=== PATIENT | male | born 1930 | race Caucasian/White ===

== ENCOUNTER 2017-03-18 07:36 | Inpatient (IN) | payer MEDICARE, BC ==
[~2017-03-18] VITALS: Ht 165.1 cm; Wt 96.6 kg
--- NOTE | 2017-03-18 08:03 | NUR ---
PT IS IN ROOM #1B. DR JUAREZ EVALUATED THE PT.
[2017-03-18] MEDS ORDERED: NITROGLYCERIN 0.4 MG/TAB BOTTLE SL ONE ×2 (08:15→08:29)
[2017-03-18] MEDS ORDERED: ASPIRIN 325 MG TABLET PO ONE (08:15)
[2017-03-18] MEDS ORDERED: NITROGLYCERIN OINT 1 GM PACKET TP ONE ×2 (08:15→08:30)
[2017-03-18 08:21] LABS: CARBON DIOXIDE 27 mmol/L (21-32); CHLORIDE 104 mmol/L (98-107); CREATININE 1.3 mg/dL (0.6-1.3); POTASSIUM 3.8 mmol/L (3.5-5.1); UREA NITROGEN, BLOOD 26 mg/dL (7-18)
[2017-03-18 08:27] LABS: BASOPHILS % (AUTO) 0.1 % (0.0-2.0); EOSINOPHILS # (AUTO) 0.2 K/uL (0.0-0.7); EOSINOPHILS % (AUTO) 1.6 % (0.0-7.0); HEMATOCRIT 37.2 % (40-50); HEMOGLOBIN 12.1 G/DL (14.0-18.0); LYMPHOCYTES # (AUTO) 1.2 K/UL (0.8-4.8); LYMPHOCYTES % (AUTO) 12.3 % (20.5-51.5); MEAN CORPUSCULAR HGB CONC 33 g/dL (32.0-37.0); MEAN CORPUSCULAR VOLUME 92.1 FL (82.0-92.0); MONOCYTES # (AUTO) 0.7 K/UL (0.1-1.30); MONOCYTES % (AUTO) 6.8 % (0.0-11.0); NEUTROPHILS # (AUTO) 7.6 K/UL (1.8-8.9); NEUTROPHILS % (AUTO) 79.2 % (38.5-71.5); PLATELET COUNT (AUTO) 169 K/UL (150-450); RED BLOOD CELL COUNT(AUTO) 4.03 MIL/UL (4.7-6.1); WHITE BLOOD COUNT (AUTO) 9.7 K/UL (4.0-11.2)
[2017-03-18] MEDS ORDERED: ASPIRIN 325 MG TABLET ONE (08:30)
[2017-03-18 08:31] LABS: GLUCOSE 143 mg/dL (74-106)
[2017-03-18] MEDS ORDERED: ASPI81TA31 PO (09:09)
[2017-03-18] MEDS ORDERED: METO-302 PO (09:09)
[2017-03-18] MEDS ORDERED: SIMV10TA6 PO (09:09)
[2017-03-18] MEDS ORDERED: CHOL200074 PO (09:09)
[2017-03-18] MEDS ORDERED: PIOG45TA5 PO (09:09)
[2017-03-18] MEDS ORDERED: FINA5TAB3 PO (09:09)
[2017-03-18] MEDS ORDERED: LOSA1TAB35 PO (09:09)
[2017-03-18] MEDS ORDERED: GLIM4TAB3 PO (09:09)
[2017-03-18] MEDS ORDERED: IV NORMAL SALINE 500 ML BAG IV ONE (09:30)
[2017-03-18] MEDS ORDERED: IV NORMAL SALINE 250 ML IV ONE (09:46)
[2017-03-18] MEDS ORDERED: IOHEXOL 350 100 ML INFUS..BTL ONE (09:46)
--- NOTE | 2017-03-18 11:51 | NUR ---
REPORT WAS GIVEN TO INFORMATION TECHNOLOGY DIRECTOR. PT WAS TRANSFERED TO TELEMETRY ROOM #204.
--- NOTE | 2017-03-18 12:15 | NUR ---
Patient admitted from emergency room with c/o sob. Patient diagnosis is chest pain. Vitals are currently stable. Nitro paste given in ER along with a half liter. Patient in no noted distress. Alert and oriented times four. Ambulatory and continent. Troponin negative. History of diabetes and hypertension. Awaiting orders from Dr Colon.
[2017-03-18 15:27] VITALS: BP 114/51
[2017-03-18] MEDS ORDERED: BLOOD SUGAR DIAGNOSTIC 1 EACH STRIP VI SCH (17:30)
[2017-03-18] MEDS: BLOOD SUGAR DIAGNOSTIC 1 EACH STRIP VI SCH ×2 (17:41→20:49)
[2017-03-18] MEDS ORDERED: DEXTROSE 50% 50 ML DISP.SYRIN IV PRN (17:45)
[2017-03-18] MEDS ORDERED: INSULIN REGULAR, HUMAN 300 UNIT/3 ML VIAL SQ PRN (17:45)
[2017-03-18] MEDS ORDERED: LEVOFLOXACIN 500 MG/D5W 500 MG in PREMIXED 1 EACH IV SCH (18:30)
[2017-03-18] MEDS ORDERED: ALBUTEROL SULFATE 2.5 MG/3 ML NEBU NEB PRN (18:30)
[2017-03-18] MEDS ORDERED: CLONIDINE HCL 0.1 MG TABLET PO PRN (18:30)
[2017-03-18] MEDS ORDERED: ONDANSETRON 4 MG/2 ML VIAL IV PRN (18:30)
[2017-03-18] MEDS ORDERED: MORPHINE SULFATE 2 MG/1 ML DISP.SYRIN IV PRN (18:30)
[2017-03-18] MEDS ORDERED: ACETAMINOPHEN 325 MG TABLET PO PRN (18:30)
[2017-03-18 20:00] VITALS: BP 119/56
[2017-03-18] MEDS ORDERED: DOCUSATE SODIUM 250 MG CAPSULE PO SCH (21:00)
[2017-03-18] MEDS ORDERED: DOCUSATE SODIUM 100 MG CAPSULE PO SCH (21:00)
[2017-03-18] MEDS ORDERED: SIMVASTATIN 10 MG TABLET PO SCH (21:00)
--- NOTE | 2017-03-18 22:00 | NUR ---
Patient in bed, no SOB denies chest pain. Sinus rhythm on the monitor V/S are WNL. C/o headache, nignt snacks provided. Tylenol 650 mg po was given & ice pack applied. Will continue to monitor.
[2017-03-19] VITALS: BP 123/42
--- NOTE | 2017-03-19 00:27 | NUR ---
Asleep. Sinus rhythm on the monitor.
[2017-03-19 04:00] VITALS: BP 130/62
[2017-03-19] MEDS ORDERED: PANTOPRAZOLE SODIUM 40 MG TABLET.DR PO SCH (07:00)
[2017-03-19] MEDS: BLOOD SUGAR DIAGNOSTIC 1 EACH STRIP VI SCH ×2 (07:40→12:09)
[2017-03-19] MEDS ORDERED: GLIMEPIRIDE 4 MG TABLET PO SCH (08:00)
[2017-03-19 08:33] LABS: BASOPHILS % (AUTO) 0.3 % (0.0-2.0); EOSINOPHILS # (AUTO) 0.1 K/uL (0.0-0.7); HEMOGLOBIN 10.7 G/DL (14.0-18.0); LYMPHOCYTES % (AUTO) 15.9 % (20.5-51.5); MEAN CORPUSCULAR HEMOGLOBIN 30.1 UUG (27.0-31.0); MEAN CORPUSCULAR HGB CONC 33 g/dL (32.0-37.0); MEAN CORPUSCULAR VOLUME 90.8 FL (82.0-92.0); MONOCYTES # (AUTO) 0.7 K/UL (0.1-1.30); NEUTROPHILS # (AUTO) 4.7 K/UL (1.8-8.9); NEUTROPHILS % (AUTO) 71.8 % (38.5-71.5); PLATELET COUNT (AUTO) 135 K/UL (150-450)
[2017-03-19 08:35] LABS: HEMATOCRIT 32.3 % (40-50); RED BLOOD CELL COUNT(AUTO) 3.55 MIL/UL (4.7-6.1); WHITE BLOOD COUNT (AUTO) 6.5 K/UL (4.0-11.2)
[2017-03-19 08:53] LABS: THYROID STIMULATING HORMONE 0.937 mIU/mL (0.358-3.740)
[2017-03-19] MEDS ORDERED: CHOLECALCIFEROL 1,000 UNIT TABLET PO SCH (09:00)
[2017-03-19] MEDS ORDERED: FINASTERIDE 5 MG TABLET PO SCH (09:00)
[2017-03-19] MEDS ORDERED: METOPROLOL SUCCINATE XL 25 MG TAB.SR.24H PO SCH (09:00)
[2017-03-19] MEDS ORDERED: ASPIRIN 81 MG TAB.CHEW PO SCH (09:00)
[2017-03-19 09:03] LABS: ALANINE AMINOTRANSFERASE 25 U/L (16-63); ALKALINE PHOSPHATASE 40 U/L (50-136); ASPARTATE AMINOTRANSFERASE 20 U/L (15-37); BILIRUBIN,TOTAL 0.6 mg/dL (0.2-1.0); CARBON DIOXIDE 27 mmol/L (21-32); CHLORIDE 105 mmol/L (98-107); CHOLESTEROL 102 mg/dL (<200); CREATININE 1.3 mg/dL (0.6-1.3); GLUCOSE 127 mg/dL (74-106); HDL CHOLESTEROL 63 mg/dL (40-60); PHOSPHOROUS 3.2 mg/dL (2.5-4.9); POTASSIUM 3.7 mmol/L (3.5-5.1); TOTAL PROTEIN, SERUM 6.8 g/dL (6.4-8.2); TRIGLYCERIDES 52 MG/DL (30-150); UREA NITROGEN, BLOOD 26 mg/dL (7-18)
[2017-03-19 09:26] LABS: IRON, SERUM 31 ug/dL (50-175)
[2017-03-19 10:09] LABS: MAGNESIUM 2.2 mg/dL (1.8-2.4)
[2017-03-19 12:50] VITALS: BP 112/42
[2017-03-19] MEDS ORDERED: LEVO500T2 PO (13:28)
--- NOTE | 2017-03-19 14:45 | NUR ---
DISCHARGE NOTE: PT IS READY TO BE D/C, PRESCRIPTION IS GIVEN TO THE PT. PT REFUSED PHARMACIST TO COME OVER AND GIVE THE EDUCATION, EDUCATION IS GIVEN TO THE PT BY THE NURSE. IV IS REMOVED. PT IS D/C VIA WHEELCHAIR.
--- NOTE | 2017-03-19 14:47 | NUR ---
NO S/S OF RESPIRATORY DISTRESS NOTED. NO PAIN REPORTED.
== END 2017-03-19 14:30 | disposition home or self-care (01) | DRG 205 ==
LOC: ER 07:36 → MED 11:52 → TELE 12:23
PROVIDERS: ADMIT Internal Medicine; ATTEND Internal Medicine
DX: M94.0 Chondrocostal junction syndrome [Tietze] (principal); N17.0 Acute kidney failure with tubular necrosis; J18.9 Pneumonia, unspecified organism; I50.32 Chronic diastolic (congestive) heart failure; K92.1 Melena; D35.01 Benign neoplasm of right adrenal gland; Z90.49 Acquired absence of other specified parts of digestive tract; G47.33 Obstructive sleep apnea (adult) (pediatric); Z98.42 Cataract extraction status, left eye; Z98.41 Cataract extraction status, right eye; E66.9 Obesity, unspecified; Z68.35 Body mass index [BMI] 35.0-35.9, adult; E11.65 Type 2 diabetes mellitus with hyperglycemia; L40.9 Psoriasis, unspecified; I11.0 Hypertensive heart disease with heart failure; D50.9 Iron deficiency anemia, unspecified; Z79.899 Other long term (current) drug therapy; N40.0 Benign prostatic hyperplasia without lower urinary tract symptoms; J40 Bronchitis, not specified as acute or chronic; B96.89 Other specified bacterial agents as the cause of diseases classified elsewhere; Z88.0 Allergy status to penicillin; E78.00 Pure hypercholesterolemia, unspecified; I25.10 Atherosclerotic heart disease of native coronary artery without angina pectoris
CPT/HCPCS: 36415; 70030-TC; 71010; 71275; 83550; 83735; 84100; 84153; 84443; 85025; 85730; 93005; 93307; 97161; A4663; J1815; J1956; J7030; J7050; Q9967